=== PATIENT | female | born 1990 | race Caucasian/White ===

== ENCOUNTER 2018-03-19 14:59 | Emergency (ER) | payer OTHER ==
[~2018-03-19] VITALS: Ht 170.2 cm; Wt 124.7 kg
[2018-03-19 15:08] VITALS: BP 169/101
[2018-03-19] MEDS ORDERED: SERTRALINE HCL50 MG PO (15:10)
[2018-03-19] MEDS ORDERED: AMOXICILLIN 50500 MG PO (15:10)
[2018-03-19] MEDS ORDERED: MEDROLDOSEPACK PO (15:27)
[2018-03-19] MEDS ORDERED: CLEOCIN HCL150 MG PO (15:27)
[2018-03-19] MEDS ORDERED: NORCO 5-325 TA1 EACH PO (15:27)
== END 2018-03-19 15:37 | disposition home or self-care (01) ==
LOC: M.ERS 14:59
DX: K04.7 Periapical abscess without sinus (principal)